=== PATIENT | male | born 1990 | race Caucasian/White ===

== ENCOUNTER 2025-08-24 16:27 | Emergency (ER) | payer OTHER ==
[2025-08-24] MEDS ORDERED: Ketorolac Tromethamine 30 MG (1 mL) VIAL ONE (17:38)
== END 2025-08-24 17:45 | disposition home or self-care (01) ==
LOC: CSHERS 16:27
DX: K64.4 Residual hemorrhoidal skin tags (principal)
CPT/HCPCS: 96372; 99283; J1885